=== PATIENT | male | born 1970 | race Caucasian/White ===

== ENCOUNTER 2019-03-18 12:51 | Day surgery (SDC) | payer BC, OTHER ==
[~2019-03-18] VITALS: Ht 167.6 cm; Wt 110.7 kg
[2019-03-18 15:46] VITALS: Ht 167.6 cm; Wt 110.7 kg
[2019-03-18] MEDS ORDERED: LACT10SO5 PO (15:50)
[2019-03-18] MEDS ORDERED: DIURETIC (15:50)
--- NOTE | 2019-03-18 16:45 | PREAC ---
Date/Time of Note Date/Time of Note DATE: 03/18/19 TIME: 16:44 Anesthesia Eval and Record Evaluation Time Pre-Procedure Interview DATE: 03/18/19 TIME: 16:44 Age 48 Sex male NPO: 8 hrs Preoperative diagnosis nausea Planned procedure EGD Past Medical History Past Medical History: Includes Pulm: Smoking Hx Hepatic: Alcohol abuse, Cirrhosis GI: Morbid obesity Surgery & Anesthesia Issues No known issue Meds Anticoagulation: No Beta Alvino within 24 hr: No Reason Beta Alvino not given: Pt. not on B-Alvino Reported Medications [Diuretic] No Conflict Check 03/18/19 Lactulose* (Lactulose*) 10 Gm/15 Ml Solution, 10 GM PO Q6, ML 03/18/19 Meds reviewed: Yes Allergies Coded Allergies: acetaminophen (Verified Allergy, Unknown, 03/18/19) Allergies Reviewed: Yes Labs/Studies Labs Reviewed: Other (NA) test: N/A Pre-procedure Exam Airway: Adequate mouth opening Mallampati: Mallampati II Teeth: Normal Lung: Normal Heart: Normal ASA Physical Status ASA physical status: 3 Emergency: None Planned Anesthetic General/MAC: MAC Pre-operative Attestations Prior to commencing anesthesia and surgery, the patient was re-evaluated, there was verification of: *The patient's identity *The results of appropriate recent lab work and preoperative vital signs *The above evaluation not changing prior to induction *Anesthetic plan, risk benefits, alternative and complications discussed with patient/family; questions answered; patient/family understands, accepts and wishes to proceed. RAMONA HUFFMAN Mar 18, 2019 16:45
[2019-03-18 16:56] VITALS: BP 118/69; PULSE 84; RESP 20
[2019-03-18] MEDS ORDERED: PROPOFOL 40 ML ONE (17:39)
--- NOTE | 2019-03-18 17:42 | PAC ---
Date/Time of Note Date/Time of Note DATE: 03/18/19 TIME: 17:41 Post-Anesthesia Notes Post-Anesthesia Note Last documented vital signs Vital Signs Date Temp Pulse Resp B/P (MAP) Pulse Ox O2 O2 Flow FiO2 Time Delivery Rate 03/18/19 97.6 84 20 118/69 100 Room Air 17:46 (85) Activity: WNL Respiratory function: WNL Cardiovascular function: WNL Mental status: Baseline Pain reasonably controlled: Yes Hydration appropriate: Yes Nausea/Vomiting absent: Yes ANTONIA BURTON MD Mar 18, 2019 17:42
[2019-03-18 18:15] VITALS: BP 120/64; PULSE 88; RESP 20
== END 2019-03-18 19:19 | disposition home or self-care (01) ==
LOC: GIL 12:51
PROVIDERS: ATTEND Internal Medicine Gastroenterology
DX: I85.10 Secondary esophageal varices without bleeding (principal); K31.9 Disease of stomach and duodenum, unspecified; Z87.891 Personal history of nicotine dependence
CPT/HCPCS: 43239; 88305; 88312; Z7610

== ENCOUNTER 2019-03-24 07:09 | Day surgery (SDC) | payer OTHER ==
[~2019-03-24] VITALS: Ht 167.6 cm; Wt 113.8 kg
[~2019-03-24 07:09] MED LIST: DIURETIC; LACT10SO5 PO
[2019-03-24 10:49] VITALS: Ht 167.6 cm; Wt 113.8 kg
[2019-03-24] MEDS ORDERED: RIFA550T4 PO (10:55)
[2019-03-24] MEDS ORDERED: FURO40TA4 PO (10:55)
[2019-03-24] MEDS ORDERED: SPIR50TA PO (10:55)
[2019-03-24] MEDS ORDERED: PROPOFOL 40 ML ONE (11:00)
[2019-03-24] MEDS ORDERED: LIDOCAINE 100 MG SYRINGE ONE (11:00)
--- NOTE | 2019-03-24 11:00 | PREAC ---
Date/Time of Note Date/Time of Note DATE: 03/24/19 TIME: 10:58 Anesthesia Eval and Record Evaluation Time Pre-Procedure Interview DATE: 03/24/19 TIME: 10:58 Age 48 Sex male NPO: 8 hrs Preoperative diagnosis SCREENING Planned procedure COLONOSCOPY Past Medical History Past Medical History: Includes Hepatic: Alcohol abuse, Cirrhosis GI: Morbid obesity Surgery & Anesthesia Issues No known issue Meds Anticoagulation: No Beta Alvino within 24 hr: No Reason Beta Alvino not given: Pt. not on B-Alvino Reported Medications Furosemide* (Furosemide*) 40 Mg Tablet, 40 MG PO DAILY, TAB 03/24/19 Spironolactone* (Aldactone*) 50 Mg Tablet, 50 MG PO DAILY, #30 TAB 03/24/19 Rifaximin* (Xifaxan*) 550 Mg Tablet, 550 MG PO BID, TAB 03/24/19 Lactulose* (Lactulose*) 10 Gm/15 Ml Solution, 10 GM PO Q6, ML 03/18/19 Discontinued Reported Medications [Diuretic] No Conflict Check 03/18/19 Meds reviewed: Yes Allergies Coded Allergies: acetaminophen (Verified Allergy, Unknown, 03/18/19) Allergies Reviewed: Yes Labs/Studies Labs Reviewed: Reviewed by anesthesiologist test: N/A Pre-procedure Exam Airway: Adequate mouth opening, Adequate thyromental dist Mallampati: Mallampati II Teeth: Normal Lung: Normal Heart: Normal ASA Physical Status ASA physical status: 4 Emergency: None Planned Anesthetic General/MAC: MAC Planned Pain Management Parenteral pain med Pre-operative Attestations Prior to commencing anesthesia and surgery, the patient was re-evaluated, there was verification of: *The patient's identity *The results of appropriate recent lab work and preoperative vital signs *The above evaluation not changing prior to induction *Anesthetic plan, risk benefits, alternative and complications discussed with patient/family; questions answered; patient/family understands, accepts and wishes to proceed. Jeevan Tai M.D. Mar 24, 2019 11:00
[2019-03-24] MEDS ORDERED: PROPOFOL 20 ML ONE (11:20)
--- NOTE | 2019-03-24 11:30 | PAC ---
Date/Time of Note Date/Time of Note DATE: 03/24/19 TIME: 11:30 Post-Anesthesia Notes Post-Anesthesia Note Last documented vital signs HR 67 RR 14 BP 117/75 T 98.6 Activity: WNL Respiratory function: WNL Cardiovascular function: WNL Mental status: Baseline Pain reasonably controlled: Yes Hydration appropriate: Yes Nausea/Vomiting absent: Yes Jeevan Tai M.D. Mar 24, 2019 11:30
== END 2019-03-24 14:49 | disposition home or self-care (01) ==
LOC: GIL 07:09
PROVIDERS: ATTEND Internal Medicine Gastroenterology
DX: Z12.11 Encounter for screening for malignant neoplasm of colon (principal); I85.10 Secondary esophageal varices without bleeding; D12.5 Benign neoplasm of sigmoid colon; D12.8 Benign neoplasm of rectum; K64.8 Other hemorrhoids; K29.70 Gastritis, unspecified, without bleeding
CPT/HCPCS: 43239; 45380; 88305; J2001; Z7610